=== PATIENT | male | born 1970 | race African-American/Black ===

== ENCOUNTER 2018-01-31 13:05 | Emergency (ER) | payer SELFPAY ==
[~2018-01-31] VITALS: Ht 180.3 cm; Wt 104.5 kg
[2018-01-31] MEDS ORDERED: TUSSIONEX PENN473 ML PO (14:00)
[2018-01-31] MEDS ORDERED: LISINOPRIL10 MG PO (14:00)
[2018-01-31] MEDS ORDERED: VENTOLIN HFA18 GM IH (14:00)
[2018-01-31 14:22] VITALS: BP 139/98
== END 2018-01-31 14:35 | disposition home or self-care (01) ==
LOC: EME 13:05
DX: J45.909 Unspecified asthma, uncomplicated (principal); J44.0 Chronic obstructive pulmonary disease with (acute) lower respiratory infection; J20.9 Acute bronchitis, unspecified; Z76.0 Encounter for issue of repeat prescription; I10 Essential (primary) hypertension; F17.200 Nicotine dependence, unspecified, uncomplicated
CPT/HCPCS: 94640; 99281; 99283; J7512